=== PATIENT | male | born 1970 | race Caucasian/White ===

== ENCOUNTER 2018-12-16 12:18 | Emergency (ER) | payer SELFPAY ==
--- NOTE | 2018-12-16 12:43 | EDM.PDOC ---
ED HPI GENERAL MEDICAL PROBLEM - General Chief Complaint: Lower Extremity Injury/Pain Stated Complaint: LEG PAIN,SWELLING AND WARM TO TOUCH Time Seen by Provider: 12/16/18 12:38 Source of Information: Reports: Patient History Limitations: Reports: No Limitations - History of Present Illness INITIAL COMMENTS - FREE TEXT/NARRATIVE: 48-year-old male presents to the ED with chief complaint of left lower extremity pain primarily behind his knee and then rating up in the distribution of the hamstrings particularly laterally and pain below the knee in the distribution of his mid calf. 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 He states he does get out and walk around however quite frequently. No history of DVT. History of peripheral vascular disease and had 3 stents placed in his heart after [facility] in 2014 and a stent placed in each femoral artery due to peripheral vascular disease. He is still a smoker from 2 packs a day down to 1 pack per day. Denies any shortness of breath or pleuritic chest pain or hemoptysis. Onset: Gradual Onset Date: 12/14/18 (Pain in the left calf particular behind his knee for 2 days.) Duration: Day(s):, Constant, Other (Not so bad when he is walking it's worse when he goes to get up from a seated position.) Location: Reports: Lower Extremity, Left Quality: Reports: Ache Severity: Moderate Improves with: Reports: Rest Worsens with: Reports: Movement (Like getting up from a seated position.) Context: Denies: Activity, Exercise, Lifting, Sick Contact, Trauma Associated Symptoms: Reports: Cough, Malaise, Shortness of Breath (On exertion at times.). Denies: No Other Symptoms, Confusion (Smoker's cough.), Chest Pain , Diaphoresis, Fever/Chills, Headaches, Loss of Appetite, Nausea/Vomiting, Rash , Seizure, Syncope Treatments TEACHER AIDE CLERICAL: Reports: Other (see below) (None.) - Related Data Allergies Allergy/AdvReac Type Severity Reaction Status Date / Time Penicillins Allergy Airway Verified 12/16/18 12:37 Tightness Home Meds: Home Meds Diclofenac Sodium [Voltaren] 50 mg PO BID #16 tab.ec 12/16/18 [Rx] Gabapentin [Neurontin] 600 mg PO TID 12/16/18 [History] atorvaSTATin Calcium [Atorvastatin Calcium] 12/16/18 [History] Past Medical History Cardiovascular History: Reports: [place], PVD (Has a stent in each femoral artery due to peripheral vascular disease.), Stents (3 stents placed in his heart in 2015 after [facility].) Respiratory History: Reports: COPD (Still smokes a pack of cigarettes daily.) Gastrointestinal History: Reports: GERD Social & Family History - Living Situation & Occupation Occupation: Employed Review of Systems - Review of Systems Review Of Systems: See Below Constitutional: Reports: No Symptoms Eyes: Reports: No Symptoms Ears: Reports: No Symptoms Nose: Reports: No Symptoms Mouth/Throat: Reports: No Symptoms Respiratory: Reports: Shortness of Breath, Wheezing, Cough (Occasional wheezing) , Sputum. Denies: Pleuritic Chest Pain Cardiovascular: Denies: Chest Pain (Brown sputum at times. Still smoking a pack per day), Edema, Irregular Heart Rate GI/Abdominal: Reports: No Symptoms Genitourinary: Reports: No Symptoms Musculoskeletal: Reports: Other (Pain left lower extremity from posterior knee rating up the posterior aspect of his leg as well as distal to the knee in the calf.) Skin: Reports: No Symptoms Neurological: Reports: Paresthesia (Both lower extremities. This was since he had femoral artery stenting.) Psychiatric: Reports: No Symptoms ED EXAM, GENERAL - Physical Exam Exam: See Below Exam Limited By: No Limitations General Appearance: Alert, WD/WN, Anxious (Mildly anxious.) Respiratory/Chest: No Respiratory Distress, Lungs Clear, Normal Breath Sounds, No Accessory Muscle Use, Chest Non-Tender Cardiovascular: Normal Peripheral Pulses, Regular Rate, Rhythm, No Edema, No Murmur, No Rub Peripheral Pulses: 1+: Posterior Tibial (L), Posterior Tibial (R), Dorsalis Pedis (L), Dorsalis Pedis (R) GI/Abdominal: Normal Bowel Sounds, Soft, Non-Tender, No Organomegaly, No Abnormal Bruit, No Mass, Pelvis Stable Back Exam: Normal Inspection, Full Range of Motion. No: CVA Tenderness (L), CVA Tenderness (R) Extremities: Other (Examination of the left lower extremity reveals some puffiness in the popliteal space of his left knee. There is however pain along the insertion site of the lateral hamstring muscle site as well as both gastrocnemius muscle insertion sites at the posterior knee. There is very minimal edema of the lower extremity. No significant pain on palpation in the midline of the calf. No pain along the distribution of the greater saphenous vein medial leg.) Neurological: Alert, Oriented, CN II-XII Intact, Normal Cognition, Normal Gait Psychiatric: Anxious Skin Exam: Warm (Mildly anxious), Dry, Intact, Normal Color, No Rash Course - Vital Signs Last Recorded V/S: Last Vital Signs Temp 36.6 C 12/16/18 12:33 Pulse 88 12/16/18 12:33 Resp 13 12/16/18 12:33 BP 155/93 H 12/16/18 12:33 Pulse Ox 98 12/16/18 12:33 - Radiology Interpretation Free Text/Narrative:: 48-year-old male presents to the ED with concerns about possible blood clot in his left lower extremity. 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 He states he has peripheral vascular disease and has a stent in both femoral arteries. He's also got 3 stents in his heart post [facility] in 2014. Is no longer on any blood thinners. Takes baby aspirin most days. Examination was limited to the left leg which is painful primarily in the popliteal fossa. He may have a very small Sifuentes's cyst. Pain is mostly coming from insertion sites of the gastrocnemius muscles bilaterally and the lateral insertion site of the hamstring muscle. No convincing evidence of DVT on my exam. Ultrasound of the leg will be done since the patient is quite apprehensive about having a blood clot in his leg. - Re-Assessments/Exams Free Text/Narrative Re-Assessment/Exam: 12/16/18 14:33 Doppler ultrasound of the left lower extremity reveals no evidence of deep venous thrombosis. His pain is from tendinitis post from the lateral hamstring insertion site as well as the gastrocnemius insertion sites in the posterior aspect of his knee. He can't remember straining it. I will place him on Voltaren 50 mg twice a day first 7 days to reduce pain and inflammation. He will continue working at this point in time Departure - Departure Time of Disposition: 14:33 Disposition: Home, Self-Care 01 Condition: Fair Clinical Impression: Pain in left lower leg, Tendinitis of left knee - Discharge Information *PRESCRIPTION DRUG MONITORING PROGRAM REVIEWED*: Not Applicable *COPY OF PRESCRIPTION DRUG MONITORING REPORT IN PATIENT ARUN: Not Applicable Prescriptions: Diclofenac Sodium [Voltaren] 50 mg PO BID #16 tab.ec Referrals: PCP,None [Primary Care Provider] - Forms: ED Department Discharge Additional Instructions: Evaluation the emergency room today in regards to pain centered around the knee primarily. Especially the posterior aspect with feeling of swelling and pain with walking particularly noted in the proximal calf and behind the knee. She reveals no significant swelling of the left lower extremity as compared to the right. Good pulses to the feet. History reveals peripheral vascular disease with previous femoral artery stenting bilaterally. There was no pain or swelling along the distribution of the greater saphenous vein. Doppler ultrasound reveals no evidence of blood clot in the left lower extremity. To be coming from the insertion of the lateral hamstring muscle or tendon where it inserts into the back of the knee as well as both gastrocnemius muscles which are calf muscles where they insert in the back of the knee. No specific reason why they have become tender and inflamed. Suggest treatment with Voltaren 50 mg twice daily for the next 8 days to reduce pain and swelling in the tendons. Active at least 2-3 days for a days to begin to work well.
--- NOTE | 2018-12-16 14:24 | US ---
Left lower extremity deep venous ultrasound: Duplex and color flow imaging was obtained of the left common femoral, proximal greater saphenous, superficial femoral, popliteal, posterior tibial and peroneal veins. Right common femoral vein was also evaluated. Normal phasic flow, augmentation and compression are seen. Impression: 1. No evidence of deep venous thrombosis within the left lower extremity or within the right common femoral vein. Diagnostic code #1
== END 2018-12-16 14:53 | disposition home or self-care (01) ==
LOC: JD.ED 12:18
DX: M77.9 Enthesopathy, unspecified (principal); I25.2 Old myocardial infarction; F17.210 Nicotine dependence, cigarettes, uncomplicated; J44.9 Chronic obstructive pulmonary disease, unspecified; Z88.0 Allergy status to penicillin; Z79.899 Other long term (current) drug therapy
CPT/HCPCS: 93971-26-LT; 93971-LT; 99283-25; 99284

== ENCOUNTER 2020-03-08 08:29 | Emergency (ER) | payer MEDICAID ==
[2020-03-08] MEDS ORDERED: Ketorolac 60 MG/2 ML SDV IM ONE (09:11)
[2020-03-08] MEDS ORDERED: Acetaminophen 325 MG Tab PO ONE (09:11)
--- NOTE | 2020-03-08 10:16 | CR ---
Lumbar spine: AP, lateral and coned-down lateral view centered to the lumbosacral junction were obtained. Comparison: No prior lumbar spine imaging is available. Findings: Prior surgery is noted at L3-4 and L4-5. Posterior disc space narrowing is noted L5-S1. Posterior disc space narrowing is noted with the lower thoracic spine and at L1-2. Scattered anterior endplate osteophytes are noted. No discrete fracture or subluxation is seen. Impression: 1. Prior surgery. Mild degenerative change. 2. Nothing acute is appreciated on three-view lumbar spine study. Diagnostic code #2 This report was dictated in MDT
--- NOTE | 2020-03-08 10:18 | CR ---
Pelvis: AP view of the pelvis was obtained. Comparison: No prior pelvis study. Joint spaces are fairly well-preserved within both hips. Sacroiliac joints appear within normal limits. Prior lumbar spine surgery is seen. No fracture or other bony abnormality is appreciated. Impression: 1. Previous lumbar spine surgery. 2. Nothing acute is appreciated on AP pelvis study. Diagnostic code #2 This report was dictated in MDT
[2020-03-08] MEDS ORDERED: methylPREDNISolone Sodium Succinate 125 MG/2 ML SDV IVPUSH ONE (10:37)
[2020-03-08] MEDS ORDERED: methylPREDNISolone Sodium Succinate 125 MG/2 ML SDV IM ONE (10:38)
--- NOTE | 2020-03-08 10:42 | EDM.PDOC ---
ED HPI GENERAL MEDICAL PROBLEM - General Chief Complaint: Back Pain or Injury Stated Complaint: BACK PAIN Time Seen by Provider: 03/08/20 09:06 Source of Information: Reports: Patient, RN Notes Reviewed - History of Present Illness INITIAL COMMENTS - FREE TEXT/NARRATIVE: 50 yr old male with low back pain. Hx chronic pain low back, worse since a fall 2 or 3 days ago. There has been radiation down the L leg. Back Pain Score (Numeric/FACES): 10 - Related Data Allergies Allergy/AdvReac Type Severity Reaction Status Date / Time Penicillins Allergy Airway Verified 03/08/20 08:44 Tightness Home Meds: Home Meds Diclofenac Sodium [Voltaren] 50 mg PO BID #16 tab.ec 12/16/18 [Rx] Gabapentin [Neurontin] 600 mg PO TID 12/16/18 [History] atorvaSTATin Calcium [Atorvastatin Calcium] 20 mg PO DAILY 12/16/18 [History] Past Medical History Cardiovascular History: Reports: [place], PVD, Stents Respiratory History: Reports: COPD Gastrointestinal History: Reports: GERD Other Gastrointestinal History: diverticulitis Musculoskeletal History: Reports: Fracture Neurological History: Reports: Migraines Psychiatric History: Reports: Anxiety, Depression - Infectious Disease History Infectious Disease History: Reports: MRSA - Past Surgical History Neurological Surgical History: Reports: Lumbar Spine, Spinal Fusion Other Neurological Surgeries/Procedures: L3, L4, L5 Other Musculoskeletal Surgeries/Procedures:: back sx, l knee surgery Social & Family History - Family History Family Medical History: Noncontributory - Tobacco Use Smoking Status *Q: Current Every Day Smoker Years of Tobacco use: 30 Packs/Tins Daily: 1 - Caffeine Use Caffeine Use: Reports: Coffee - Living Situation & Occupation Occupation: Employed ED ROS GENERAL - Review of Systems Review Of Systems: See Below Constitutional: Denies: Fever, Chills, Diaphoresis HEENT: Reports: No Symptoms Respiratory: Denies: Shortness of Breath Cardiovascular: Denies: Chest Pain GI/Abdominal: Denies: Abdominal Pain, Vomiting : Reports: No Symptoms Musculoskeletal: Reports: Back Pain, Leg Pain Skin: Reports: No Symptoms ED EXAM,LOWER BACK PAIN/INJURY - Physical Exam Exam: See Below General Appearance: Alert, Mild Distress Head: Atraumatic Neck: Supple Respiratory/Chest: No Respiratory Distress, Lungs Clear, Normal Breath Sounds Cardiovascular: Regular Rate, Rhythm Back Exam: Paraspinal Tenderness (mild L low back tenderness, no appreciable spasm). No: CVA Tenderness (L), CVA Tenderness (R) Neurological: Alert, No Motor/Sensory Deficits, Oriented x 3 Skin Exam: Warm, Dry, Normal Color Course - Vital Signs Last Recorded V/S: Last Vital Signs Temp 97.6 F 03/08/20 08:40 Pulse 84 03/08/20 08:40 Resp 16 03/08/20 08:40 BP 142/87 H 03/08/20 08:40 Pulse Ox 96 03/08/20 08:40 - Orders/Labs/Meds Meds: Medications Discontinued Medications Generic Name Dose Route Start Last Admin Trade Name Bernardino PRN Reason Stop Dose Admin Acetaminophen 975 mg 03/08/20 09:11 03/08/20 09:18 Tylenol PO 03/08/20 09:12 975 mg NOW ONE Administration Ketorolac Tromethamine 60 mg 03/08/20 09:11 03/08/20 09:18 Toradol IM 03/08/20 09:12 60 mg ONETIME ONE Administration Methylprednisolone Sodium Succinate 125 mg 03/08/20 10:38 03/08/20 11:01 Solu-Medrol IM 03/08/20 10:39 125 mg ONETIME ONE Administration - Re-Assessments/Exams Free Text/Narrative Re-Assessment/Exam: 03/09/20 08:30 X rays of pelvis and L spine, no fx, discharge instr. as documented. Departure - Departure Time of Disposition: 10:39 Disposition: Home, Self-Care 01 Condition: Fair Clinical Impression: Back pain Qualifiers: Back pain location: low back pain Chronicity: chronic Back pain laterality: left Sciatica presence: with sciatica Sciatica laterality: sciatica of left side Qualified Code(s): M54.42 - Lumbago with sciatica, left side - Discharge Information Instructions: Chronic Back Pain, [id number] Referrals: PCP,None [Primary Care Provider] - Forms: ED Department Discharge Additional Instructions: rest back, no heavy lifting, Alternate ice and heat as needed. Prednisone 40 mg this evening and than 40 mg q AM for 3 days, than 20 mg q AM for 2 days. See Cintia Jackson at clinic in 2 to 3 days for recheck. Physical therapy strongly recom ended. You can self refer to Therapist of your choice. Sepsis Event Note (ED) - Evaluation Sepsis Screening Result: No Definite Risk
== END 2020-03-08 11:03 | disposition home or self-care (01) ==
LOC: JD.ED 08:29
DX: M54.42 Lumbago with sciatica, left side (principal); J44.9 Chronic obstructive pulmonary disease, unspecified; Z88.0 Allergy status to penicillin; F17.210 Nicotine dependence, cigarettes, uncomplicated; I25.2 Old myocardial infarction; Z95.5 Presence of coronary angioplasty implant and graft; Z79.899 Other long term (current) drug therapy
CPT/HCPCS: 72100; 72170; 96372; 99283; A9270; J1885; J2930

== ENCOUNTER 2024-04-20 14:24 | Emergency (ER) | payer SELFPAY ==
[2024-04-20 14:52] LABS: BASOPHILS ABSOLUTE AUTO 0.1 K/mm3 (0.0-0.2); BASOPHILS PERCENT AUTO 0.7 % (0.0-1.0); EOSINOPHILS ABSOLUTE AUTO 0.2 K/mm3 (0.0-0.4); HEMATOCRIT 47.8 % (42.0-52.0); HEMOGLOBIN 16.3 gm/dl (14.0-18.0); IMMATURE GRAN ABSOLUTE AUTO 0.06 K/mm3 (0.00-0.05); IMMATURE GRAN PERCENT AUTO 0.5 % (0.0-0.4); LYMPHOCYTES ABSOLUTE AUTO 3.7 K/mm3 (1.0-4.8); LYMPHOCYTES PERCENT AUTO 30.6 % (24.0-44.0); MEAN CORPUSCULAR HEMOGLOBIN 31.6 pg (28.0-32.0); MEAN CORPUSCULAR HGB CONC 34.1 g/dl (32.0-36.0); MEAN CORPUSCULAR VOLUME 92.6 fl (83.0-99.0); MEAN PLATELET VOLUME 9.3 fl (9.4-12.4); MONOCYTES ABSOLUTE AUTO 0.8 K/mm3 (0.0-0.8); MONOCYTES PERCENT AUTO 6.6 % (0.0-8.0); NEUTROPHILS ABSOLUTE AUTO 7.3 K/mm3 (1.8-7.7); NEUTROPHILS PERCENT AUTO 59.6 % (41.0-71.0); PLATELET COUNT,PLT 313 K/mm3 (150-400); RED BLOOD CELL COUNT 5.16 M/mm3 (4.52-5.90); WHITE BLOOD CELL COUNT,WBC 12.18 K/mm3 (3.9-11.3)
[2024-04-20 15:11] LABS: D-DIMER QUANTITATIVE 0.5 mg/L (0.19-0.50); PROTHROMBIN TIME 10.6 SECONDS (9.7-12.0)
[2024-04-20 15:12] LABS: PTT,PARTIAL THROMBOPLSTIN TIME 28.9 SECONDS (21.7-31.4)
[2024-04-20 15:21] LABS: A/G RATIO 1.2 (1-2); ALANINE AMINOTRANSFERASE,ALT 40 U/L (16-63); ALBUMIN 4.1 g/dl (3.4-5.0); ALKALINE PHOSPHATASE 105 U/L (46-116); ASPARTATE AMNIOTRANSFERASE,AST 27 U/L (15-37); BILIRUBIN TOTAL 0.4 mg/dL (0.2-1.0); BLOOD UREA NITROGEN,BUN 27 mg/dL (7-18); BUN/CREATININE RATIO 22.5 (14-18); CALCIUM 9.6 mg/dL (8.5-10.1); CARBON DIOXIDE,CO2 19 mEq/L (21-32); CHLORIDE,CL 102 mEq/L (98-107); CREATININE 1.2 mg/dL (0.7-1.3); ESTIMATED GFR 72 mL/min (>60); GLUCOSE RANDOM 108 mg/dL (70-99); MAGNESIUM 2.3 mg/dL (1.8-2.4); PROTEIN TOTAL,TP 7.4 g/dl (6.4-8.2); SODIUM,NA 137 mEq/L (136-145); TROPONIN I HIGH SENSITIVITY 7 pg/mL (<=76)
== END 2024-04-20 18:08 | disposition home or self-care (01) ==
LOC: JD.ED 14:24 → MERGE 14:24 → EDBD 14:24 → JD.ED 18:08
DX: R07.9 Chest pain, unspecified (principal); Z79.899 Other long term (current) drug therapy; Z88.0 Allergy status to penicillin
CPT/HCPCS: 36415; 71045; 71045-26; 80053; 83735; 83880; 84484; 85025; 85379; 85610; 85730; 93005; 99285

== ENCOUNTER 2024-05-02 13:33 | Inpatient (IN) | payer SELFPAY ==
[2024-05-02] MEDS ORDERED: Sodium Chloride 0.9% 10 ML Syringe FLUSH PRN (13:47)
[2024-05-02 13:58] LABS: BASOPHILS ABSOLUTE AUTO 0.1 K/mm3 (0.0-0.2); BASOPHILS PERCENT AUTO 0.8 % (0.0-1.0); EOSINOPHILS ABSOLUTE AUTO 0.3 K/mm3 (0.0-0.4); HEMATOCRIT 44.8 % (42.0-52.0); HEMOGLOBIN 15.3 gm/dl (14.0-18.0); IMMATURE GRAN ABSOLUTE AUTO 0.02 K/mm3 (0.00-0.05); IMMATURE GRAN PERCENT AUTO 0.3 % (0.0-0.4); LYMPHOCYTES ABSOLUTE AUTO 2.9 K/mm3 (1.0-4.8); LYMPHOCYTES PERCENT AUTO 36.2 % (24.0-44.0); MEAN CORPUSCULAR HEMOGLOBIN 31.9 pg (28.0-32.0); MEAN CORPUSCULAR HGB CONC 34.2 g/dl (32.0-36.0); MEAN CORPUSCULAR VOLUME 93.3 fl (83.0-99.0); MEAN PLATELET VOLUME 9.5 fl (9.4-12.4); MONOCYTES ABSOLUTE AUTO 0.6 K/mm3 (0.0-0.8); MONOCYTES PERCENT AUTO 7.1 % (0.0-8.0); NEUTROPHILS ABSOLUTE AUTO 4.1 K/mm3 (1.8-7.7); NEUTROPHILS PERCENT AUTO 51.6 % (41.0-71.0); PLATELET COUNT,PLT 315 K/mm3 (150-400); WHITE BLOOD CELL COUNT,WBC 7.98 K/mm3 (3.9-11.3)
[2024-05-02] MEDS: Iopamidol 755 Mg/ML 100 ML Bottle IVPUSH ONE (14:21)
[2024-05-02] MEDS: Sodium Chloride 0.9% 100 ML IV SCH (14:21)
[2024-05-02 14:27] LABS: INR 0.97; PROTHROMBIN TIME 10.3 SECONDS (9.7-12.0)
[2024-05-02 14:28] LABS: PTT,PARTIAL THROMBOPLSTIN TIME 28.6 SECONDS (21.7-31.4)
[2024-05-02 14:36] LABS: ALBUMIN 3.3 g/dl (3.4-5.0); ALKALINE PHOSPHATASE 130 U/L (46-116); ANION GAP 15.2 (5-15); BILIRUBIN TOTAL 0.4 mg/dL (0.2-1.0); BLOOD UREA NITROGEN,BUN 15 mg/dL (7-18); BUN/CREATININE RATIO 16.7 (14-18); CALCIUM 9.1 mg/dL (8.5-10.1); CARBON DIOXIDE,CO2 23 mEq/L (21-32); CHLORIDE,CL 104 mEq/L (98-107); CREATININE 0.9 mg/dL (0.7-1.3); ESTIMATED GFR 101 mL/min (>60); MAGNESIUM 1.9 mg/dL (1.8-2.4); PROTEIN TOTAL,TP 6.6 g/dl (6.4-8.2); SODIUM,NA 138 mEq/L (136-145); TROPONIN I HIGH SENSITIVITY 5 pg/mL (<=76)
[2024-05-02 14:39] LABS: GLUCOSE RANDOM 131 mg/dL (70-99)
[2024-05-02 14:40] LABS: POTASSIUM,K 4.2 mEq/L (3.5-5.1)
[2024-05-02] MEDS: Sodium Chloride 0.9% 500 ML IV SCH (14:54)
[2024-05-02] MEDS ORDERED: hydrALAZINE 20 MG/ML SDV IVPUSH PRN (17:08)
[2024-05-02] MEDS ORDERED: Acetaminophen 325 MG Tab PO PRN (17:08)
[2024-05-02] MEDS: atorvaSTATin 40 MG Tab PO ONE ×2 (18:02→18:24)
[2024-05-02] MEDS: Aspirin 81 MG Tab.Chew PO ONE (18:03)
[2024-05-02 18:26] LABS: HEMOGLOBIN A1C 5.7 %
[2024-05-02 18:56] LABS: TSH 1.75 uIU/mL (0.358-3.74)
[2024-05-02] MEDS: Acetaminophen/HYDROcodone 325-5 MG Tab PO PRN (20:58)
[2024-05-02] MEDS: Gabapentin 600 MG Tab PO SCH (20:59)
[2024-05-03 06:12] LABS: CHOLESTEROL HDL 50 mg/dL (40-59); CHOLESTEROL LDL DIRECT 93 mg/dL (<100); CHOLESTEROL TOTAL 270 mg/dL (<200); TRIGLYCERIDES 463 mg/dL (<150)
[2024-05-03] MEDS ORDERED: atorvaSTATin 40 MG Tab PO SCH (21:00)
== END 2024-05-03 10:41 | disposition left against medical advice (07) | DRG 93 ==
LOC: JD.ED 13:33 → JD.MS 16:40
PROVIDERS: ADMIT Family Medicine; ATTEND Family Medicine
DX: R20.0 Anesthesia of skin (principal); R29.818 Other symptoms and signs involving the nervous system; I73.9 Peripheral vascular disease, unspecified; J44.9 Chronic obstructive pulmonary disease, unspecified; K21.9 Gastro-esophageal reflux disease without esophagitis; G43.909 Migraine, unspecified, not intractable, without status migrainosus; F41.9 Anxiety disorder, unspecified; F32.A Depression, unspecified; I25.10 Atherosclerotic heart disease of native coronary artery without angina pectoris; M54.9 Dorsalgia, unspecified; G89.29 Other chronic pain; M81.0 Age-related osteoporosis without current pathological fracture; E66.9 Obesity, unspecified; F17.210 Nicotine dependence, cigarettes, uncomplicated; I10 Essential (primary) hypertension; Z88.0 Allergy status to penicillin; Z79.899 Other long term (current) drug therapy; I25.2 Old myocardial infarction; Z95.5 Presence of coronary angioplasty implant and graft; Z87.19 Personal history of other diseases of the digestive system; Z87.81 Personal history of (healed) traumatic fracture; Z98.1 Arthrodesis status; Z98.890 Other specified postprocedural states; Z68.33 Body mass index [BMI] 33.0-33.9, adult
CPT/HCPCS: 36415; 70450; 70450-26; 70496; 70496-26; 70498; 70498-26; 80053; 80061; 82607; 82947; 83036; 83735; 84443; 84484; 85025; 85610; 85652; 85730; 86140; 93005; 93010; 99285; A9270-GY; J3490; J7040; Q9967

== ENCOUNTER 2024-07-30 23:34 | Emergency (ER) | payer MEDICAID ==
[2024-07-31 00:20] LABS: ALBUMIN 3.2 g/dl (3.4-5.0); BILIRUBIN TOTAL 0.3 mg/dL (0.2-1.0); CALCIUM 8.6 mg/dL (8.5-10.1); EST CRCL DRUG DOSING (CG) 92.69 mL/min; PROTEIN TOTAL,TP 6.4 g/dl (6.4-8.2)
[2024-07-31 00:22] LABS: BASOPHILS ABSOLUTE AUTO 0.1 K/mm3 (0.0-0.2); BASOPHILS PERCENT AUTO 0.6 % (0.0-1.0); EOSINOPHILS ABSOLUTE AUTO 0.3 K/mm3 (0.0-0.4); EOSINOPHILS PERCENT AUTO 2.8 % (0.0-6.0); HEMATOCRIT 48.2 % (42.0-52.0); HEMOGLOBIN 16.7 gm/dl (14.0-18.0); IMMATURE GRAN ABSOLUTE AUTO 0.03 K/mm3 (0.00-0.05); IMMATURE GRAN PERCENT AUTO 0.3 % (0.0-0.4); LYMPHOCYTES ABSOLUTE AUTO 3.7 K/mm3 (1.0-4.8); LYMPHOCYTES PERCENT AUTO 37.2 % (24.0-44.0); MEAN CORPUSCULAR HEMOGLOBIN 31.2 pg (28.0-32.0); MEAN CORPUSCULAR HGB CONC 34.6 g/dl (32.0-36.0); MEAN CORPUSCULAR VOLUME 89.9 fl (83.0-99.0); MEAN PLATELET VOLUME 9.2 fl (9.4-12.4); MONOCYTES ABSOLUTE AUTO 0.7 K/mm3 (0.0-0.8); MONOCYTES PERCENT AUTO 7.1 % (0.0-8.0); NEUTROPHILS ABSOLUTE AUTO 5.2 K/mm3 (1.8-7.7); PLATELET COUNT,PLT 328 K/mm3 (150-400); RED BLOOD CELL COUNT 5.36 M/mm3 (4.52-5.90); WHITE BLOOD CELL COUNT,WBC 10.05 K/mm3 (3.9-11.3)
[2024-07-31 00:31] LABS: D-DIMER QUANTITATIVE 0.43 mg/L (0.19-0.50); PROTHROMBIN TIME 10.6 SECONDS (9.7-12.0)
[2024-07-31 00:35] LABS: HEMOGLOBIN A1C 6.2 %
== END 2024-07-31 01:13 ==
LOC: JD.ED 23:34
DX: E78.5 Hyperlipidemia, unspecified (principal); R07.89 Other chest pain; I10 Essential (primary) hypertension; I25.10 Atherosclerotic heart disease of native coronary artery without angina pectoris; E11.65 Type 2 diabetes mellitus with hyperglycemia; Z91.199 Patient's noncompliance with other medical treatment and regimen due to unspecified reason; I25.2 Old myocardial infarction; J44.9 Chronic obstructive pulmonary disease, unspecified; M19.90 Unspecified osteoarthritis, unspecified site; E66.9 Obesity, unspecified; Z88.0 Allergy status to penicillin; Z79.82 Long term (current) use of aspirin; Z79.84 Long term (current) use of oral hypoglycemic drugs; Z79.899 Other long term (current) drug therapy; Z68.32 Body mass index [BMI] 32.0-32.9, adult
CPT/HCPCS: 36415; 71045; 71045-26; 80053; 80061; 82550; 83036; 83690; 83735; 84484; 85025; 85379; 85610; 93005; 99285

== ENCOUNTER 2024-08-16 11:03 | Emergency (ER) | payer MEDICAID | END 2024-08-16 12:20 | disposition left against medical advice (07) | LOC: JD.ED 11:03 | DX: Z53.21 Procedure and treatment not carried out due to patient leaving prior to being seen by health care provider (principal) ==

== ENCOUNTER 2025-02-05 13:21 | Emergency (ER) | payer MEDICAID, MEDICARE ==
[2025-02-05 14:04] LABS: BASOPHILS ABSOLUTE AUTO 0.1 K/mm3 (0.0-0.2); BASOPHILS PERCENT AUTO 0.8 % (0.0-1.0); EOSINOPHILS ABSOLUTE AUTO 0.2 K/mm3 (0.0-0.4); EOSINOPHILS PERCENT AUTO 2.6 % (0.0-6.0); IMMATURE GRAN ABSOLUTE AUTO 0.04 K/mm3 (0.00-0.05); IMMATURE GRAN PERCENT AUTO 0.5 % (0.0-0.4); LYMPHOCYTES ABSOLUTE AUTO 2.1 K/mm3 (1.0-4.8); LYMPHOCYTES PERCENT AUTO 24.8 % (24.0-44.0); MEAN PLATELET VOLUME 9.2 fl (9.4-12.4); MONOCYTES ABSOLUTE AUTO 0.6 K/mm3 (0.0-0.8); MONOCYTES PERCENT AUTO 7.0 % (0.0-8.0); NEUTROPHILS ABSOLUTE AUTO 5.4 K/mm3 (1.8-7.7); NEUTROPHILS PERCENT AUTO 64.3 % (41.0-71.0); NRBC ABSOLUTE 0.00 (0.00-0.02); NRBC PERCENT 0.0 % (0.0-0.2); PLATELET COUNT,PLT 315 K/mm3 (150-400); RED BLOOD CELL COUNT 5.04 M/mm3 (4.52-5.90); WHITE BLOOD CELL COUNT,WBC 8.40 K/mm3 (3.9-11.3)
[2025-02-05 14:15] LABS: A/G RATIO 0.9 (1-2); ALANINE AMINOTRANSFERASE,ALT 35.0 U/L (16-63); ASPARTATE AMNIOTRANSFERASE,AST 18.0 U/L (15-37); BILIRUBIN TOTAL 0.4 mg/dL (0.2-1.0); BLOOD UREA NITROGEN,BUN 12.0 mg/dL (7-18); CARBON DIOXIDE,CO2 27.0 mEq/L (21-32); CHLORIDE,CL 104.0 mEq/L (98-107); CREATININE 0.9 mg/dL (0.7-1.3); EST CRCL DRUG DOSING (CG) 101.79 mL/min; ESTIMATED GFR 101.0 mL/min (>60); GLUCOSE RANDOM 121.0 mg/dL (70-99); POTASSIUM,K 4.1 mEq/L (3.5-5.1); PROTEIN TOTAL,TP 6.8 g/dl (6.4-8.2); SODIUM,NA 140.0 mEq/L (136-145)
[2025-02-05] MEDS: cefTRIAXone 2 GM, Lidocaine 1% 4.2 ML IM ONE (14:33)
== END 2025-02-05 16:03 ==
LOC: JD.ED 13:21
DX: L08.9 Local infection of the skin and subcutaneous tissue, unspecified (principal); E11.69 Type 2 diabetes mellitus with other specified complication
CPT/HCPCS: 36415; 80053; 85025; 87428; 87651; 96372; 99284; A9270; J0696; J2003